=== PATIENT | female | born 1970 | race Caucasian/White ===

== ENCOUNTER 2022-02-16 14:51 | Inpatient (IN) ==
[2022-02-16 17:16] LABS: Basophils # (auto) 0.04 K/uL (0-0.2); Basophils % (auto) 0.4 %; Eosinophils # (auto) 0.05 K/uL (0-0.50); Eosinophils % (auto) 0.4 %; Hemoglobin 12.4 g/dl (12.0-16.0); Immature Granulocytes # (auto) 0.05 K/uL (0.00-0.02); Immature Granulocytes % (auto) 0.4 %; Lymphocytes # (auto) 0.66 K/uL (1.2-3.4); Lymphocytes % (auto) 5.9 %; Mean Corpuscular Hemoglobin 27.4 pg (25.0-34.0); Mean Corpuscular Hgb Conc 32.6 g/dL (32.0-36.0); Mean Corpuscular Volume 83.9 fL (80.0-100.0); Mean Platelet Volume 10.6 fL (9.4-12.3); Monocytes # (auto) 1.16 K/uL (0.24-0.82); Monocytes % (auto) 10.4 %; Neutrophils # (auto) 9.22 K/uL (1.4-6.5); Neutrophils % (auto) 82.5 %; Platelet Count 214 K/uL (130-400); RDW Coefficient of Variation 13.2 % (11.5-14.5); RDW Standard Deviation 40.8 fL (36.4-46.3); Red Blood Count 4.53 M/uL (3.93-5.22); White Blood Count 11.18 K/ul (4.8-10.8)
[2022-02-16 17:41] LABS: Albumin Level 4.2 gm/dl (3.4-5.0); BUN Creatinine Ratio 19.4 (10-20); Calcium 9.1 mg/dl (8.5-10.1); Creatinine Clr Calc Pharmacy 93.6 ml/min; Est GFR (African American) 119.3 ml/min; Est GFR (Non-African American) 102.9 ml/min; Globulin 4.1 gm/dl (2.5-4.0); Total Protein 8.3 gm/dl (6.0-8.3)
[2022-02-16 17:55] LABS: Potassium 3.5 mmol/L (3.5-5.1)
--- NOTE | 2022-02-16 18:19 | Emergency Department Note ---
Impression & Plan Septic arthritis of knee, right ED Provider Note Name: PEDRO PABLO HOLLIS Age: 52 Sex: F Arrives Via: Walk-In Informant: Patient ED Provider: Dallin Gusman MD Chief Complaint: Right knee pain Impression: As per impressions above Medical Decision Making: Pleasant 52-year-old female with a history of degenerative arthritis of the right knee and previous injections arrives with several days worsening right knee pain and swelling. Patient with severe discomfort on arrival tense swollen knee and severe pain on range of motion. She does still have good pulses and sensation distally. Knee is quite warm to touch as well. She is not febrile there is no erythema or streaking appreciated. Review of labs from 2 days earlier include a joint aspiration with white blood cell count of 39,000 and is now growing out some staph. Repeat blood work reveals just mildly elevated white blood cell count severely elevated ESR/CRP. I do suspect that this is a septic joint. She herself is not septic or bacteremic by examination. She was given empiric cefepime and then followed by vancomycin for coverage of the staph. I discussed the case with her orthopedic surgeon who feels she will likely need washout in the morning. Case was discussed with the hospitalist service for further management and the plan will be to be n.p.o. after midnight. Patient was kept comfortable with IV Dilaudid. Prior Medical Record and Triage/Nursing Notes reviewed by Me Additional history obtained from chart Differentials:Septic joint, gouty arthritis, effusion, hemarthrosis, Lyme, compartment syndrome, neurovascular compromise, DVT, multiple other considerations. Vital Signs: reviewed and remarkable for no significant abnormalities Interventions: Dilaudid 1 mg IV, normal saline bolus, cefepime 2 g IV, vancomycin IV Labs:Reviewed and remarkable for elevated ESR/CRP Imaging:Reviewed imaging from previous ER visit significant effusion and some osteoarthritis noted Consults:Dr. Ramos of the orthopedic service plans to take patient to the OR in morning, [facility] hospitalist Dr. Swann Plan: Disposition: Hospitalization Condition: Good History of Present Illness: 52-year-old female arrives for evaluation of right knee pain. Patient states she has been having increasing swelling and pain over the last few days. She was seen in the ER 2 days ago and had about 100 cc of fluid drained off the knee. She notes that initially was feeling better but then pain came back. Notes swelling significantly worse. She states the knee is getting increasingly painful. She is unable to bend the knee without severe pain. She is unable to bear weight due to the pain now. She was advised by pharmacy staff to return to ER given a positive fluid culture. She has not been on any antibiotics. She is been using some tramadol with minimal improvement in her pain. She has a history of osteoarthritis and has had been a drained and injected several times previously. She has no recent manipulation of the area nor recent injections. She did have a bug bite on the back of the knee about a year ago. 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 She denies any recent falls, trauma, injuries. She is not having any fevers, nausea, vomiting, chest pain, shortness of breath, foot pain or any other signs or symptoms. There was no radiation of pain. Patient rarely smokes. She has no significant past medical issues other than her osteoarthritis. ROS: See above HPI for pertinent positives & negatives. A total of 10 of all systems reviewed and were otherwise negative. Past Medical History: Osteoarthritis, Anxiety Past Surgical History:Hysterectomy Family History:non-contributory Social History:Previously worked as a nurse, occasional smoker, no drug use, no alcohol use Home Medications:no daily medications Allergies:cyclobenzaprine, morphine, penicillins, sertraline Vitals:Blood Pressure:121/70 , Pulse 96, RR 20, T 37.2C, O2 99% on RA Physical Exam: GENERAL: Patient is uncomfortable appearing and in moderate distress. (declines pain medication) EYES: No scleral icterus, unremarkable pupils. ENT: Mucous membranes moist, no nasal congestion. NECK: No masses appreciated, nomeningismus, trachea is midline. RESPIRATORY: No dyspnea. Clear to auscultation and equal bilaterally. No wheeze, no rhonchi. CARDIOVASCULAR: Regular rate and rhythm.No murmurs, rubs, gallops appreciated. GASTROINTESTINAL: Abdomen soft, non-tender, no peritonitis.Bowel sounds positive.No masses appreciated. BACK: No midline tenderness, no CVA tenderness EXTREMITIES: large swollen right knee with increased warmth severe pain on palpation, severe pain ROM. Distal n/v intact. Normal motion all extremities, no cyanosis, no edema. NEUROLOGIC: Alert and oriented, no acute motor or sensory deficits, no focal w eakness, cranial nerves grossly intact. SKIN: No rash, no jaundice, no diaphoresis. PSYCH: Appropriate GCS: 15 ED Course: Times/Reassessments: Patient vastly improved with some IV narcotics. Still having pain with any movement of knee but much more comfortable. Dallin Gusman MD Past Med/Surg History Medical History Anxiety Effusion of right knee Right knee DJD Right knee DJD Septic arthritis of knee, right Surgical History History of hysterectomy History of lumbosacral spine surgery Social History Smoking Status: Current some day smoker Second Hand Exposure: No; Do You Dip or Chew Tobacco: No; Tobacco Cessation Education Requested by Patient: No Hx Alcohol Use: No Hx Substance Use: No Preferred Language: Nepali Communication Ability: Effective Underwriting Assistant Required: No Beliefs That Will Affect Care: None Current Living Situation: Alone Other Information That Helps Us Care for You: No Feels Safe at Home: Yes Safety Concerns: Feels Safe At This Time Assistive Devices: Cane Allergies Allergies Allergy/AdvReac Type Severity Reaction Status Date / Time cyclobenzaprine Allergy Unknown DECREASES Verified 07/14/15 10:56 BP morphine Allergy Unknown RASH Verified 07/14/15 10:56 Penicillins Allergy Unknown Verified 07/14/15 10:56 sertraline Allergy Unknown BRUISING Unverified 07/14/15 10:56 Home Meds Home Medications Medication Instructions Recorded Confirmed Clonazepam (Klonopin) 0.5 mg PO TID ##0 12/22/10 POTASSIUM CHLORIDE (K-TABS) 30 meq PO TID ##0 11/01/14 Previous Rx's Medication Instructions Recorded oxycodone-acetaminophen 5 mg-325 1 - 2 tab PO Q6H PRN pain #15 tabs 02/14/22 mg tablet (Percocet) etodolac 200 mg capsule 200 mg PO BID PRN pain #20 caps 02/15/22 etodolac 200 mg capsule 200 mg PO BID PRN pain #20 caps 02/15/22 Results & Data (ED) Vital Signs Vital Signs - 24 hr 02/16/22 15:04 02/16/22 19:47 Temperature 37.2 C Temperature Source Temporal Artery Scan Pulse Rate 96 H Pulse Rate [Right Finger] 90 Respiratory Rate 20 20 Respiratory Effort / Characteristics Non-Labored Respiratory Depth Normal Blood Pressure 121/70 Blood Pressure [Right Arm] 127/76 Blood Pressure Mean 87 Blood Pressure Mean [Right Arm] 93 Pulse Oximetry 99 98 Oxygen Delivery Method Room Air Room Air Sepsis Recent Fever Within 48 Hours No Sepsis New/Unexplained Change in Mental Status N/A Sepsis Action Taken by Nursing No Action Required Laboratory Data Result diagrams: 02/17/22 05:25 02/17/22 05:25 Lab Results 02/16/22 02/16/22 02/16/22 Range/Units 17:00 17:00 17:00 WBC 11.18 H (4.8-10.8) K/ul RBC 4.53 (3.93-5.22) M/uL Hgb 12.4 (12.0-16.0) g/dl Hct 38.0 (34.1-44.9) % MCV 83.9 (80.0-100.0) fL MCH 27.4 (25.0-34.0) pg MCHC 32.6 (32.0-36.0) g/dL RDW Std Deviation 40.8 (36.4-46.3) fL RDW Coeff of Handy 13.2 (11.5-14.5) % Plt Count 214 (130-400) K/uL MPV 10.6 (9.4-12.3) fL Immature Gran % (Auto) 0.4 % Neut % (Auto) 82.5 % Lymph % (Auto) 5.9 % Surry % (Auto) 10.4 % Eos % (Auto) 0.4 % Baso % (Auto) 0.4 % Neut # (Auto) 9.22 H (1.4-6.5) K/uL Lymph # (Auto) 0.66 L (1.2-3.4) K/uL Surry # (Auto) 1.16 H (0.24-0.82) K/uL Eos # (Auto) 0.05 (0-0.50) K/uL Baso # (Auto) 0.04 (0-0.2) K/uL Immature Gran # (Auto) 0.05 H (0.00-0.02) K/uL ESR 100 H (0-30) mm/hr Sodium 131 L (136-145) mmol/L Potassium 3.5 (3.5-5.1) mmol/L Chloride 98 (98-107) mmol/L Carbon Dioxide 24 (21-32) mmol/L Anion Gap 9 (3-11) BUN 12 (6-23) mg/dl Creatinine 0.62 (0.6-1.2) mg/dl Est Cr Clr Drug Dosing 93.6 ml/min Est GFR ( Amer) 119.3 ml/min Est GFR (Non-Af Amer) 102.9 ml/min BUN/Creatinine Ratio 19.4 (10-20) Glucose 120 H (70-99(Fasting)) mg/dl Calcium 9.1 (8.5-10.1) mg/dl Total Bilirubin 1.0 (0.2-1.0) mg/dl AST 16 (13-39) U/L ALT 12 (7-52) U/L Alkaline Phosphatase 87 (34-104) U/L C-Reactive Protein (0-0.5) mg/dl Total Protein 8.3 (6.0-8.3) gm/dl Albumin 4.2 (3.4-5.0) gm/dl Globulin 4.1 H (2.5-4.0) gm/dl Albumin/Globulin Ratio 1.0 (0.9-2) SARS-CoV-2, RNA, NAAT (NEGATIVE) 02/16/22 02/16/22 Range/Units 17:00 18:59 WBC (4.8-10.8) K/ul RBC (3.93-5.22) M/uL Hgb (12.0-16.0) g/dl Hct (34.1-44.9) % MCV (80.0-100.0) fL MCH (25.0-34.0) pg MCHC (32.0-36.0) g/dL RDW Std Deviation (36.4-46.3) fL RDW Coeff of Handy (11.5-14.5) % Plt Count (130-400) K/uL MPV (9.4-12.3) fL Immature Gran % (Auto) % Neut % (Auto) % Lymph % (Auto) % Surry % (Auto) % Eos % (Auto) % Baso % (Auto) % Neut # (Auto) (1.4-6.5) K/uL Lymph # (Auto) (1.2-3.4) K/uL Surry # (Auto) (0.24-0.82) K/uL Eos # (Auto) (0-0.50) K/uL Baso # (Auto) (0-0.2) K/uL Immature Gran # (Auto) (0.00-0.02) K/uL ESR (0-30) mm/hr Sodium (136-145) mmol/L Potassium (3.5-5.1) mmol/L Chloride (98-107) mmol/L Carbon Dioxide (21-32) mmol/L Anion Gap (3-11) BUN (6-23) mg/dl Creatinine (0.6-1.2) mg/dl Est Cr Clr Drug Dosing ml/min Est GFR ( Amer) ml/min Est GFR (Non-Af Amer) ml/min BUN/Creatinine Ratio (10-20) Glucose (70-99(Fasting)) mg/dl Calcium (8.5-10.1) mg/dl Total Bilirubin (0.2-1.0) mg/dl AST (13-39) U/L ALT (7-52) U/L Alkaline Phosphatase (34-104) U/L C-Reactive Protein 39.16 H (0-0.5) mg/dl Total Protein (6.0-8.3) gm/dl Albumin (3.4-5.0) gm/dl Globulin (2.5-4.0) gm/dl Albumin/Globulin Ratio (0.9-2) SARS-CoV-2, RNA, NAAT NEGATIVE (NEGATIVE) Administered Medications Acetaminophen (Acetaminophen 325 Mg Tab) 650 mg PO Q4H PRN PRN Reason: pain/fever Stop: 03/18/22 21:58 Last Admin: 02/17/22 07:55 Dose: 650 mg Documented By: [id number] Hydromorphone HCl (Hydromorphone Inj 0.5 Mg/0.5 Ml Syr) 0.5 mg IV Q3H PRN PRN Reason: Pain Stop: 03/02/22 21:58 Last Admin: 02/17/22 07:19 Dose: 0.5 mg Documented By: Admin: 02/17/22 03:36 Dose: 0.5 mg Documented By: Admin: 02/16/22 22:42 Dose: 0.5 mg Documented By: RES Sodium Chloride (Nss 1000ml) 1,000 mls @ 125 mls/hr IV .Q8H OMAR Stop: 03/18/22 21:58 Last Admin: 02/17/22 05:53 Dose: 125 mls/hr Documented By: Infusion: 02/17/22 05:53 Dose: 125 mls/hr Documented By: Admin: 02/16/22 21:59 Dose: 125 mls/hr Documented By: ROBERTO Vancomycin HCl 1,000 mg/ (Sodium Chloride) 270 mls @ 200 mls/hr IV Q12H OMAR; Protocol Stop: 03/31/22 02:59 Last Infusion: 02/17/22 04:58 Dose: 0 mls/hr Documented By: Admin: 02/17/22 03:36 Dose: 200 mls/hr Documented By: ROBERTO Ertapenem 1,000 mg/ Syringe 10 mls @ 2 mls/min IV Q24H OMAR Stop: 03/31/22 05:59 Last Admin: 02/17/22 05:53 Dose: 2 mls/min Documented By: ROBERTO Discontinued Medications Epinephrine HCl (Epinephrine Inj 1 Mg/Ml Amp) Confirm Administered Dose 1 mg .ROUTE .STK-MED ONE Stop: 02/17/22 10:17 Last Admin: 02/17/22 11:12 Dose: Not Given Documented By: SLM Hydromorphone HCl (Hydromorphone Inj 1 Mg/Ml Syringe) 1 mg IV NOW STA Stop: 02/16/22 19:04 Last Admin: 02/16/22 19:08 Dose: 1 mg Documented By: LUDY Cefepime HCl (Maxipime) 2,000 mg in 20 mls @ 5 mls/min IV NOW STA; Protocol Stop: 02/16/22 18:58 Last Admin: 02/16/22 19:06 Dose: 5 mls/min Documented By: LUDY Vancomycin HCl 1,250 mg/ (Sodium Chloride) 525 mls @ 200 mls/hr IV NOW ONE Stop: 02/16/22 21:32 Last Infusion: 02/16/22 22:40 Dose: 0 mls/hr Documented By: Admin: 02/16/22 19:58 Dose: 200 mls/hr Documented By: LUDY Sodium Chloride (Nss 1000ml) 1,000 mls @ 999 mls/hr IV .Q1H1M ONE Stop: 02/16/22 20:03 Last Infusion: 02/16/22 20:09 Dose: 0 mls/hr Documented By: Admin: 02/16/22 19:07 Dose: 999 mls/hr Documented By: LUDY Ibuprofen (Ibuprofen 200 Mg Tab) 200 mg PO NOW STA Stop: 02/17/22 08:32 Last Admin: 02/17/22 08:43 Dose: 200 mg Documented By: [id number] Ketorolac Tromethamine (Ketorolac 30 Mg/Ml Vial) Confirm Administered Dose 30 mg .ROUTE .STK-MED ONE Stop: 02/17/22 10:16 Last Admin: 02/17/22 11:11 Dose: Not Given Documented By: EMERSON Ondansetron HCl (Ondansetron Inj 2 Mg/Ml 2 Ml Vial) 4 mg IV NOW STA Stop: 02/16/22 19:04 Last Admin: 02/16/22 19:08 Dose: 4 mg Documented By: LUDY Discharge Plan Visit Data Chief Complaint: Leg Injury/Pain Stated Complaint: BACTERIA ON KNEE ED Provider: Dallin Gusman Discharge Problem: Septic arthritis of knee, right Patient Disposition: Admitted As Inpatient Discharge Instructions Interventions: ED Discharge Assessment Last Done: 02/16/22 21:12
[2022-02-16] MEDS ORDERED: VANCOMYCIN CONSULT ACTIVE PRN ×2 (18:55→21:59)
[2022-02-16] MEDS ORDERED: VANCOMYCIN HCL 1,250 MG in SODIUM CHLORIDE 0.9% 500 ML IV ONE (18:55)
[2022-02-16] MEDS ORDERED: CEFEPIME 2,000 MG/20 ML VIAL IV STA (18:55)
[2022-02-16] MEDS ORDERED: ONDANSETRON INJ 2 MG/ML 2 ML VIAL IV STA (19:03)
[2022-02-16] MEDS ORDERED: HYDROmorphone INJ 1 MG/ML SYRINGE IV STA (19:03)
[2022-02-16] MEDS ORDERED: SODIUM CHLORIDE 0.9% 1000ML 1,000 ML IV ONE (19:03)
[2022-02-16] MEDS: SODIUM CHLORIDE 0.9% 1000ML 1,000 ML IV SCH (21:59)
[2022-02-16] MEDS ORDERED: ACETAMINOPHEN 325 MG TAB PO PRN (21:59)
[2022-02-16] MEDS ORDERED: POLYETHYLENE (MIRALAX) 17 GM PACK PO PRN (21:59)
[2022-02-16] MEDS ORDERED: ONDANSETRON INJ 2 MG/ML 2 ML VIAL IV PRN (21:59)
--- NOTE | 2022-02-16 22:16 | History and Physical Report ---
DATE OF ADMISSION: 02/16/2022. CHIEF COMPLAINT: Right knee pain. HISTORY OF PRESENT ILLNESS: This is a 52-year-old female with past medical history significant for osteoarthritis, no other significant medical problems, not taking any medication currently, presents with right knee pain. The patient says she has arthritis in the right knee and her knee has been drained a few times in the past and last time it was drained was a few days back in the ER. She was having swelling and pain since last Saturday and a couple of days ago, she was drained in the ER and cultures growing Staph species, so was advised to come to the hospital. She is having a lot of pain in the knee and also swelling down the knee, right leg. Not able to put any weight on that leg. Denies any fevers. No other problems. Currently resting comfortably and hemodynamically stable. Denies any headache, no dizziness, no blurred visions, no earache, no runny nose, no sore throat. No cough. Appetite is okay. No difficulty swallowing. No chest pain or shortness of breath, no nausea, no abdominal pain. Normal bowel and bladder movements. No hematuria or blood in the stools or black stools. ALLERGIES: CYCLOBENZAPRINE, MORPHINE, PENICILLIN, SERTRALINE. PAST MEDICAL HISTORY: As mentioned above. PAST SURGICAL HISTORY: Back surgery. MEDICATIONS: None. FAMILY HISTORY: Father had heart problems; she says mother had congenital heart problems. SOCIAL HISTORY: She used to smoke in the past once in a while. Denies alcohol or illicit drug use. REVIEW OF SYSTEMS: As per HPI. Rest of the review of systems is negative. PHYSICAL EXAMINATION: GENERAL: The patient is of moderate build, not in acute distress. VITAL SIGNS: Temperature 37.2, pulse 90, respiratory rate 20, blood pressure 127/76, and oxygen 98% on room air. HEENT: Pupils equal, round and reactive to light. Oral mucosa moist. NECK: No JVD, no neck masses. CARDIOVASCULAR: S1 and S2 heard. Regular rate and rhythm. No murmur, no gallop. RESPIRATORY SYSTEM: Normal AP diameter. No accessory muscle use. No wheezing, no crackles. ABDOMEN: Soft, bowel sounds present, nontender, no distention. CENTRAL NERVOUS SYSTEM: Cranial nerves II through XII grossly intact, nonfocal. EXTREMITIES: Right knee is swollen and tender and swelling below the right knee, no erythema is seen, painful to palpation, painful on movements. LABORATORY DATA: WBC 11.1, hemoglobin 12.4, hematocrit 38, platelets 214. ESR 100. Sodium 131, potassium 3.5, chloride 98, bicarbonate 24, BUN 12, creatinine 0.6, serum glucose 120, calcium 9.1, total bilirubin 1, AST 16, ALT 12, alkaline phosphatase 87. C-reactive protein 39. SARS-CoV-2 rapid test negative. ASSESSMENT AND PLAN: This is a 52-year-old male who presents with right knee septic arthritis. 1. Right knee septic arthritis. Emergency Room started her on IV vancomycin, we will continue with IV vancomycin and Invanz. N.p.o., IV fluids, IV antiemetics, IV pain medications. We will get preoperative EKG and chest x-ray. If that is okay, the patient should be at acceptable risk to proceed with the procedure. Consult orthopedics. 2. Deep venous thrombosis prophylaxis. Holding anticoagulation secondary to possible procedure tomorrow. Further anticoagulation as per orthopedics. DISPOSITION: Admit to medical floor. Expect to discharge home and follow with family doctor. Job ID: [id number] [facility]
--- NOTE | 2022-02-16 22:36 | XRay Report ---
XR chest 1V portable HISTORY: 52 years-old Female pre op preoperative exam. COMPARISON: Chest CT 05/14/2011 TECHNIQUE: Portable AP view of the chest FINDINGS: Cardiomediastinal and hilar silhouettes are within normal limits. No pneumothorax, pleural effusion, airspace consolidation or overt bulge appear grossly intact. Degenerative changes of the shoulders an d spine. IMPRESSION: No acute process. ACT 112: Negative or not required by law. The above report was generated using voice recognition software. It may contain grammatical, syntax o r spelling errors. Electronically signed by: Jatin Gardner M.D. 02/16/2022 10:34 PM
[2022-02-16] MEDS: HYDROmorphone INJ 0.5 MG/0.5 ML SYR IV PRN (22:42)
--- NOTE | 2022-02-16 23:41 | Ultrasound Report ---
US venous doppler LE RT HISTORY: 52 years-old Female rigt lower ext swelling and pain. DVT? Acute pain and swelling of the r ight lower leg COMPARISON: None TECHNIQUE: Multiple real-time sonographic images of the right lower extremity deep venous structures were obtained assessing grayscale appearance, color and spectral flow. FINDINGS: Normal flow, compressibility, phasicity and augmentation. Limited exam secondary to patient intoleran ce to the exam. IMPRESSION: No sonographic evidence of deep venous thrombosis. ACT 112: Negative or not required by law. The above report was generated using voice recognition software. It may contain grammatical, syntax o r spelling errors. Electronically signed by: Jatin Gardner M.D. 02/16/2022 11:39 PM
[2022-02-17] MEDS: HYDROmorphone INJ 0.5 MG/0.5 ML SYR IV PRN ×2 (03:36→07:19)
[2022-02-17] MEDS: VANCOMYCIN HCL 1,000 MG in SODIUM CHLORIDE 0.9% 250 ML IV SCH ×2 (03:36→16:09)
[2022-02-17 05:52] LABS: Basophils # (auto) 0.03 K/uL (0-0.2); Basophils % (auto) 0.3 %; Eosinophils # (auto) 0.03 K/uL (0-0.50); Eosinophils % (auto) 0.3 %; Hematocrit (blood only) 34.3 % (34.1-44.9); Hemoglobin 11.2 g/dl (12.0-16.0); Immature Granulocytes # (auto) 0.03 K/uL (0.00-0.02); Immature Granulocytes % (auto) 0.3 %; Lymphocytes # (auto) 0.66 K/uL (1.2-3.4); Lymphocytes % (auto) 6.3 %; Mean Corpuscular Hemoglobin 27.5 pg (25.0-34.0); Mean Corpuscular Hgb Conc 32.7 g/dL (32.0-36.0); Mean Corpuscular Volume 84.1 fL (80.0-100.0); Mean Platelet Volume 10.8 fL (9.4-12.3); Monocytes # (auto) 1.03 K/uL (0.24-0.82); Monocytes % (auto) 9.8 %; Neutrophils # (auto) 8.69 K/uL (1.4-6.5); Platelet Count 193 K/uL (130-400); RDW Coefficient of Variation 13.3 % (11.5-14.5); RDW Standard Deviation 41.2 fL (36.4-46.3); Red Blood Count 4.08 M/uL (3.93-5.22); White Blood Count 10.47 K/ul (4.8-10.8)
[2022-02-17] MEDS: ERTAPENEM SODIUM 1,000 MG in SYRINGE 0 ML IV SCH (05:53)
[2022-02-17] MEDS: SODIUM CHLORIDE 0.9% 1000ML 1,000 ML IV SCH ×2 (05:53→13:14)
[2022-02-17 06:24] LABS: BUN Creatinine Ratio 14.8 (10-20); Calcium 8.7 mg/dl (8.5-10.1); Est GFR (African American) 124.9 ml/min; Est GFR (Non-African American) 107.7 ml/min; Magnesium 1.6 mg/dl (1.7-2.4); Potassium 3.6 mmol/L (3.5-5.1)
--- NOTE | 2022-02-17 07:29 | Orthopedic Consultation ---
Date of Service February 17, 2022 Assessment & Plan (1) Septic arthritis of knee, right: Patient has been admitted to the hospital. She is warranted and indicated for surgical irrigation debridement of left septic knee. The's was discussed with the patient and she strongly took desiring to proceed. We will plan on doing this later today. The risk meant the procedure explained in depth. Patient understands and desires to proceed. Informed consent was obtained. (2) Right knee DJD: History of Present Illness Reason for Consultation: . Right knee pain and swelling. Requesting Physician: . Attending Physician: Allyson Sandoval MD . Patient is a 52-year-old female with trace presents for treatment of swollen painful right knee. As she is got known history of arthritis in the knee has had multiple aspirations and injections in the past. Nothing recent. On Saturday evening when she got home from work she started pain discomfort and swelling her knee. Describes gotten worse over the past several days. He has been to the ER on several occasions for management. She had her knee aspirated initially. She was given some NSAIDs which helped some. The aspirations are growing out staph. Patient was roup admitted last evening and now indicated for surgical management. Allergies Allergy/AdvReac Type Severity Reaction Status Date / Time cyclobenzaprine Allergy Unknown DECREASES Verified 07/14/15 10:56 BP morphine Allergy Unknown RASH Verified 07/14/15 10:56 Penicillins Allergy Unknown Verified 07/14/15 10:56 sertraline Allergy Unknown BRUISING Unverified 07/14/15 10:56 Home Medications Medication Instructions Recorded Confirmed Type Clonazepam (Klonopin) 0.5 mg PO TID ##0 12/22/10 History POTASSIUM CHLORIDE (K-TABS) 30 meq PO TID ##0 11/01/14 History oxycodone-acetaminophen 5 mg-325 1 - 2 tab PO Q6H PRN pain #15 tabs 02/14/22 Rx mg tablet (Percocet) etodolac 200 mg capsule 200 mg PO BID PRN pain #20 caps 02/15/22 Rx etodolac 200 mg capsule 200 mg PO BID PRN pain #20 caps 02/15/22 Rx Past Med/Surg History Medical History (Updated 02/17/22 @ 07:29 by Imtiaz Ramos MD) Anxiety Effusion of right knee Right knee DJD Right knee DJD Septic arthritis of knee, right Surgical History History of hysterectomy History of lumbosacral spine surgery Social History Smoking Status: Current some day smoker Second Hand Exposure: No; Do You Dip or Chew Tobacco: No; Tobacco Cessation Education Requested by Patient: No Hx Alcohol Use: No Hx Substance Use: No Preferred Language: [place] Communication Ability: Effective Stave Block Roller Required: No Beliefs That Will Affect Care: None Current Living Situation: Alone Other Information That Helps Us Care for You: No Feels Safe at Home: Yes Safety Concerns: Feels Safe At This Time Assistive Devices: Denture - Upper and Denture - Lower Review of Systems All systems reviewed & are unremarkable except as noted in HPI & below. Physical Exam . Physical examination reveals a pleasant middle-age female who looks in good health. She really looks quite uncomfortable. Examination of the right knee re veals a very tense and swollen knee. Is very tender to palpation. It is warm. No redness. She really cannot bend at all. Exquisitely tender to touch. She can dorsiflex and plantarflex her foot appropriately. No particular pain with hip motion. She is neurologically intact. Results & Data Results & Data Laboratory Results . Laboratory results reveal a white count of 11.18. Hemoglobin hematocrit are normal. Sed rate is 120. CRP 39.16. Knee aspirate reveals a 39,000 white cells with 93% polys. And negative crystals. Cultures are growing out staph. Diagnostic Findings . X-rays of the right knee were reviewed. Shows moderate to advanced right knee arthritis. She got a very large knee joint effusion. PG Care Time/CCT Total # of Minutes Spent Total Time Spent with Patient: Total time spent is greater than 50% in coordination of care (as documented) at patient's floor/unit and/or counseling patient: Coding Level of Care Code 54479 Inpt Consult Level 5 Diagnoses Septic arthritis of knee, right M00.9 Right knee DJD M17.11
[2022-02-17] MEDS ORDERED: IBUPROFEN 200 MG TAB PO STA (08:31)
--- NOTE | 2022-02-17 09:12 | Anesthesiology Consultation ---
Date of Service February 17, 2022 Assessment & Plan Chart Review Chart Review: Acceptable Risk for Surgery and Patient NOT seen in Pre Admission Testing Consults Requested none ASA ASA2 Proposed Anesthesia Anesthesia Type: General History Surgery Operation Date: 02/17/22 09:00 Proposed Procedures p Arthroscopy Incision and Debridement right knee - Imtiaz Ramos MD Height/Weight Height: 5 ft 7 in Weight: 55.2 kg Allergies Allergy/AdvReac Type Severity Reaction Status Date / Time cyclobenzaprine Allergy Unknown DECREASES Verified 07/14/15 10:56 BP morphine Allergy Unknown RASH Verified 07/14/15 10:56 Penicillins Allergy Unknown Verified 07/14/15 10:56 sertraline Allergy Unknown BRUISING Unverified 07/14/15 10:56 Medications Home Medications Medication Instructions Recorded Confirmed Last Taken Clonazepam (Klonopin) 0.5 mg PO TID ##0 12/22/10 Unknown POTASSIUM CHLORIDE (K-TABS) 30 meq PO TID ##0 11/01/14 Unknown oxycodone-acetaminophen 5 mg-325 1 - 2 tab PO Q6H PRN pain #15 tabs 02/14/22 1 Day Ago mg tablet (Percocet) ~02/16/22 etodolac 200 mg capsule 200 mg PO BID PRN pain #20 caps 02/15/22 Unknown etodolac 200 mg capsule 200 mg PO BID PRN pain #20 caps 02/15/22 Unknown Active Medications Generic Name Dose Route Start Last Admin Trade Name Freq PRN Reason Stop Dose Admin Acetaminophen 650 mg 02/16/22 21:59 02/17/22 07:55 Acetaminophen 325 Mg Tab PO 03/18/22 21:58 650 mg Q4H PRN Administration pain/fever Hydromorphone HCl 0.5 mg 02/16/22 21:59 02/17/22 07:19 Hydromorphone Inj 0.5 Mg/0.5 Ml Syr IV 03/02/22 21:58 0.5 mg Q3H PRN Administration Pain Sodium Chloride 1,000 mls @ 125 mls/hr 02/16/22 21:59 02/17/22 05:53 Nss 1000ml IV 03/18/22 21:58 125 mls/hr .Q8H OMAR Administration Vancomycin HCl 1,000 mg/ 270 mls @ 200 mls/hr 02/17/22 03:00 02/17/22 04:58 Sodium Chloride IV 03/31/22 02:59 Infused Q12H OMAR Infusion Protocol Ertapenem 1,000 mg/ Syringe 10 mls @ 2 mls/min 02/17/22 06:00 02/17/22 05:53 IV 03/31/22 05:59 2 mls/min Q24H OMAR Administration NPO Date Last Intake of Fluids: 02/16/22 Time Last Intake of Fluids: 23:45 Date Last Intake of Solids: 02/16/22 Time Last Intake of Solids: 21:00 Past Medical History Medical History Anxiety Effusion of right knee Right knee DJD Right knee DJD Septic arthritis of knee, right Exercise / Class Metabolic Activity II 4-5 Yardwork/Stairs/Walk up hill Past Surgical History Surgical History History of hysterectomy History of lumbosacral spine surgery Past Anesthesia History No Hx of Anesthesia Complications and No Family Hx of Anesthesia Complications History of PONV No Hx of PONV and No Hx of Motion Sickness Social History Smoking Status: Current some day smoker tobacco type: cigarettes Do You Dip or Chew Tobacco: No Hx Alcohol Use: No Hx Substance Use: No Physical Exam Vital Signs Last Vital Signs Temp 37.7 C H 02/17/22 09:04 Pulse 107 H 02/17/22 07:50 Resp 16 02/17/22 07:50 BP 115/68 02/17/22 07:50 Pulse Ox 98 02/17/22 07:50 O2 Del Method 02/17/22 07:50 Testing Laboratory Results 02/17/22 05:25 02/17/22 05:25
[2022-02-17] MEDS ORDERED: fentaNYL citrate 100 MCG/2 ML VIAL IV PRN (09:34)
[2022-02-17] MEDS ORDERED: LABETALOL HCL IV 5 MG/ML 20ML IV PRN (09:34)
[2022-02-17] MEDS ORDERED: HYDROmorphone INJ 1 MG/ML SYRINGE IV PRN (09:34)
[2022-02-17] MEDS ORDERED: NALOXONE HCL 0.4 MG/1 ML VIAL/CARP IV PRN ×2 (09:34→12:32)
[2022-02-17] MEDS ORDERED: PROMETHAZINE HCL 12.5 MG in SODIUM CHLORIDE 0.9% 50 ML IV PRN (09:34)
[2022-02-17] MEDS ORDERED: FLUMAZENIL 0.1 MG/1 ML 10 ML VIAL IV PRN (09:34)
[2022-02-17] MEDS ORDERED: ATROPINE SULFATE 0.1 MG/ML 10ML SYR IV PRN (09:34)
[2022-02-17] MEDS ORDERED: ePHEDrine sulfate 50 MG/ML AMP IV PRN (09:34)
[2022-02-17] MEDS ORDERED: ONDANSETRON INJ 2 MG/ML 2 ML VIAL IV PRN ×2 (09:34→12:32)
[2022-02-17] MEDS ORDERED: MIDAZOLAM HCL 1 MG/ML 2ML VIAL ONE (09:35)
[2022-02-17] MEDS ORDERED: DEXAMETHASONE SOD INJ 4 MG/ML VIAL ONE (09:35)
[2022-02-17] MEDS ORDERED: PROPOFOL IV EMULSION 10 MG/ML 20 ML VIAL IV ONE (09:35)
[2022-02-17] MEDS ORDERED: fentaNYL citrate 100 MCG/2 ML VIAL ONE ×3 (09:35→10:59)
[2022-02-17] MEDS ORDERED: ONDANSETRON INJ 2 MG/ML 2 ML VIAL ONE (09:35)
[2022-02-17] MEDS ORDERED: LIDOCAINE 2% 2 ML VIAL/AMP(20MG/ML) INFIL ONE (09:35)
[2022-02-17] MEDS ORDERED: KETOROLAC 30 MG/ML VIAL ONE ×2 (10:15→11:54)
[2022-02-17] MEDS ORDERED: EPINEPHrine INJ 1 MG/ML AMP ONE (10:16)
--- NOTE | 2022-02-17 10:39 | Pharmacy Report ---
Pharmacy PK ABX Note - Date of Service February 17, 2022 - Assessment and Plan Assessment 52 year old F receiving vancomycin/ertapenem for treatment of septic knee joint. Pertinent microbiologic data includes: MSSA from synovial fluid 02/14- preliminary culture. Blood cultures pending. Leukocytosis has resolved this morning. Procal was elevated 0.58, tmax 39.3 this AM. Day # =1 of antimicrobial therapy. Plan Vancomycin * Loading dose: 1250 mg IV x 1 * Maintenance dose: 1000 mg IV every 12 hours * Regimen is predicted to achieve target AUC/KATIE of 400-600 mg/L.hr * Random to be ordered if continued Pharmacy will continue to follow and will adjust dose/frequency as necessary. Thank you. Pharmacy has transitioned to AUC monitoring for vancomycin. AUC/KATIE is the preferred PK/PD target and is associated with decreased risk of nephrotoxicity compared to traditional trough targets.
--- NOTE | 2022-02-17 10:48 | Communication Note ---
Date of Service: February 17, 2022 02/17/2022 TREVOR-MERCEDEZ@ 94;RAD;NS ST abnl
--- NOTE | 2022-02-17 12:20 | Anesthesiology Progress Note ---
Date of Service February 17, 2022 Anesthesia Post Procedure Vital Signs Vital Signs: Temp Pulse Pulse Resp BP BP Pulse Ox 02/17/22 12:19 36.7 C 84 18 126/72 100 02/17/22 12:09 36.9 C 88 17 137/75 100 02/17/22 11:57 36.8 C 87 17 132/81 100 02/17/22 11:47 36.8 C 88 17 117/69 100 02/17/22 09:04 37.7 C H 02/17/22 08:27 38 C H 02/17/22 07:50 39.3 C H 107 H 16 115/68 98 02/16/22 21:40 02/16/22 21:40 02/16/22 21:40 37.3 C 96 H 18 120/77 100 02/16/22 22:40 37.3 C 96 H 18 120/77 100 02/16/22 19:47 90 20 127/76 98 02/16/22 15:04 37.2 C 96 H 20 121/70 99 O2 Del Method O2 Flow Rate 02/17/22 12:19 Room Air 02/17/22 12:09 Non-rebreather 4 02/17/22 11:57 Non-rebreather 4 02/17/22 11:47 Non-rebreather 4 02/17/22 09:04 02/17/22 08:27 02/17/22 07:50 Room Air 02/16/22 21:40 Room Air 02/16/22 21:40 Room Air 02/16/22 21:40 Room Air 02/16/22 22:40 Room Air 02/16/22 19:47 Room Air 02/16/22 15:04 Room Air Pain Intensity Right Knee: Pain Intensity: 0 Transfer of Care Handoff Completed per policy Notes Mental Status: alert / awake / arousable Patient Amnestic to Procedure: Yes Nausea / Vomiting: adequately controlled Pain: adequately controlled Airway Patency, RR, SpO2: stable & adequate BP & HR: stable & adequate Hydration State: stable & adequate Anesthetic Complications: no major complications apparent
[2022-02-17] MEDS ORDERED: VANCOMYCIN CONSULT ACTIVE PRN (12:32)
[2022-02-17] MEDS ORDERED: bisacodyL 10 MG SUPP PR PRN (12:32)
[2022-02-17] MEDS ORDERED: MAGNESIUM HYDROXIDE SUSP 30 ML UDC PO PRN (12:32)
[2022-02-17] MEDS ORDERED: diphenhydrAMINE Capsule 25 MG CAP PO PRN (12:32)
[2022-02-17] MEDS ORDERED: ALUMINUM/MAGNESIUM SUSP 30 ML UDC PO PRN (12:32)
[2022-02-17] MEDS ORDERED: METOCLOPRAMIDE HCL INJ 5 MG/ML 2 ML VIAL IV PRN (12:32)
--- NOTE | 2022-02-17 12:42 | Operative Report ---
PG Post Operative Report Pre & Post Diagnosis Operation Date: 02/17/22 09:00 Pre-Op Diagnosis: Septic arthritis of knee, right Post-Op Diagnosis: Septic arthritis of knee, right I identified the patient and participated in the time-out.: Yes Procedure Operation Date: 02/17/22 09:00 Actual Procedures p Right Knee Arthroscopy Incision and Debridement (Right) - Imtiaz Ramos MD Surgeon Imtiaz Ramos MD Building Maintenance Supervisor Delio Lancaster PA-C Estimated Blood Loss 10 Findings Consistent with Post-Op Diagnosis Operative findings revealed large blood-tinged effusion. She had extensive grade 4 [id number] disease in all 3 compartments most severe in the medial side with significant eburnation of the medial femoral condyle and medial tibial plateau. She had degenerative tearing of both menisci. Large knee joint effusion. Specimens Joint fluid sent for stat gram stain aerobic, and anaerobic culture. Drains WILFREDO drain right knee Anesthesia Type General Complications none Disposition Accompanied Patient To Recovery: No Indications Patient is a 52-year-old female with a known advanced knee arthritis. She has had conservative treatment over the years. On Saturday evening after work she started about pain and swelling insidiously in the right knee. Is gradually progressed. She been to emergency room on multiple occasions. She had her knee aspirated and the cultures are growing out staph. The patient indicated for surgical treatment. Description of Procedure Patient was taken the operating, identified, and placed in the operating table supine position but all contact areas were properly padded. IV antibiotics tried by anesthesia team. A general anesthetic was implemented. A right thigh turn was then placed. The right lower extremity was then scrubbed with Hibiclens, prepped with ChloraPrep and draped in usual sterile fashion. The right leg was elevated exsanguinated with use of an Esmarch in terms playset 300 mmHg. A superolateral portal was established. I did take the fluid out of the knee and then sent this for stat gram stain and aerobic and anaerobic culture. Routine a knee arthroscopy was then performed subtemporal anterior medial and anterior lateral portals. I did an extensive synovectomy of the front of the knee cut, suprapatellar pouch, medial and lateral gutters. We did debride both medial lateral compartments with use of a shaver. I spent quite a bit of time doing this visit in each area multiple times. We used a total of 12 L of fluid. Once this was complete the arthroscopic instruments placed throughout the knee joint to get all remaining debris. The arthroscopic instruments were then removed from the joint. A drain was then placed through the superior lateral portals through the trocar. It was sewn into place. The anterior medial and anterolateral portals were then sutured. Sterile dressing was Xeroform, 4 x 4's, sterile cast padding, Jun bandage were applied. The tourniquet was let down for turn time 36 minutes. The patient then brought out of general incision transferred to the recovery room in stable condition. The patient tolerated procedure well and there were no complications. Delio Darden, my physician cement tester assistant, was present for the entire procedure. His assistance was required for proper patient positioning, prep prepping and draping, manipulating the knee during knee arthroscopy, closure of the wound, placement of sterile bandage. I attest to the content of the Intraoperative Record and any orders documented therein. Any exceptions are noted below.
--- NOTE | 2022-02-17 13:01 | Electrocardiogram Report ---
Test Reason : Blood Pressure : / mmHG Vent. Rate : 094 BPM Atrial Rate : 094 BPM P-R Int : 124 ms QRS Dur : 088 ms QT Int : 328 ms P-R-T Axes : 089 092 072 degrees QTc Int : 410 ms Normal sinus rhythm Rightward axis Nonspecific ST abnormality Abnormal ECG When compared with ECG of 17-JAN-2012 21:57, ST now depressed in Inferior leads Nonspecific T wave abnormality no longer evident in Inferior leads T wave amplitude has decreased in Lateral leads Confirmed by Bro Diana ([id number]) on 02/17/2022 1:00:45 PM Referred By: REFERRED SELF Confirmed By:Jerrod Diana
[2022-02-17] MEDS: ACETAMINOPHEN 500 MG TAB PO SCH ×2 (13:14→21:35)
[2022-02-17] MEDS: KETOROLAC 30 MG/ML VIAL IV SCH ×2 (13:14→17:35)
[2022-02-17] MEDS ORDERED: MAGNESIUM SULFATE / D5W 1 GM/100 ML BAG IV ONE (16:00)
--- NOTE | 2022-02-17 16:00 | Hospitalist Progress Note ---
Date of Service February 17, 2022 Assessment & Plan (1) Septic arthritis of knee, right: Plan: Patient has right knee septic arthritis Culture of aspirate on 02/14 growing MSSA Had fever this AM at 39.3 Did meet SIRS criteria for sepsis with fever and tachycardia this AM No leukocytosis. Lactate is normal Procal was 0.58 S/P incision and debridement by surgeon today Will continue vanc and ertapenem ordered on admission Follow up gram stain and culture sent from OR Follow up blood culture Consider deescalating to Ancef tomorrow based on synovial culture from 02/14 Holloway control Will need PT/OT eventually. Replete hypomagnesemia and monitor ASA 81mg BID ordered by surgery Admission and Anticipated Discharge Date Admission Date: February 16, 2022 Subjective Patient seen and examined ROS is limited as patient is drowsy and easily falls asleep in between conversation Was seen after return from OR Physical Exam Constitutional: + well hydrated; no acute distress Eyes: PERRL, conjunctivae normal, anicteric sclerae ENMT: external ear and nose normal, oropharynx normal Respiratory: normal respiratory effort, lungs clear to auscultation Cardiovascular: Rate/Rhythm: regular rate and regular rhythm S1 S2 Gastrointestinal (Abdomen): normal bowel sounds, soft, nontender, no hepatosplenomegaly Musculoskeletal: Right Knee bandaged Neurologic: Drowsy but arousable Results & Data Results & Data ([facility]) Vital Signs (Past 12 Hours) Vital Signs Temp Pulse Resp BP Pulse Ox O2 Del Method O2 Flow Rate 02/17/22 15:36 36.7 C 81 16 110/80 99 Room Air 02/17/22 14:35 36.3 C L 81 16 103/67 98 Room Air 02/17/22 13:30 36.3 C L 72 16 121/76 96 Room Air 02/17/22 13:03 36.4 C L 83 16 115/73 99 Room Air 02/17/22 12:40 36.9 C 84 18 125/79 100 Room Air 02/17/22 12:19 36.7 C 84 18 126/72 100 Room Air 02/17/22 12:09 36.9 C 88 17 137/75 100 Non-rebreather 4 02/17/22 11:57 36.8 C 87 17 132/81 100 Non-rebreather 4 02/17/22 11:47 36.8 C 88 17 117/69 100 Non-rebreather 4 02/17/22 09:04 37.7 C H 02/17/22 08:27 38 C H 02/17/22 07:50 39.3 C H 107 H 16 115/68 98 Room Air Laboratory Results Abnormal lab results 02/16/22 02/16/22 02/16/22 Range/Units 17:00 17:00 17:00 WBC 11.18 H (4.8-10.8) K/ul Hgb (12.0-16.0) g/dl Neut # (Auto) 9.22 H (1.4-6.5) K/uL Lymph # (Auto) 0.66 L (1.2-3.4) K/uL [place] # (Auto) 1.16 H (0.24-0.82) K/uL Immature Gran # (Auto) 0.05 H (0.00-0.02) K/uL ESR 100 H (0-30) mm/hr Sodium 131 L (136-145) mmol/L Creatinine (0.6-1.2) mg/dl Glucose 120 H (70-99(Fasting)) mg/dl Magnesium (1.7-2.4) mg/dl C-Reactive Protein (0-0.5) mg/dl Globulin 4.1 H (2.5-4.0) gm/dl Procalcitonin (0-0.5) ng/ml 02/16/22 02/17/22 02/17/22 Range/Units 17:00 05:25 05:25 WBC (4.8-10.8) K/ul Hgb 11.2 L (12.0-16.0) g/dl Neut # (Auto) 8.69 H (1.4-6.5) K/uL Lymph # (Auto) 0.66 L (1.2-3.4) K/uL [place] # (Auto) 1.03 H (0.24-0.82) K/uL Immature Gran # (Auto) 0.03 H (0.00-0.02) K/uL ESR (0-30) mm/hr Sodium 134 L (136-145) mmol/L Creatinine 0.54 L (0.6-1.2) mg/dl Glucose (70-99(Fasting)) mg/dl Magnesium 1.6 L (1.7-2.4) mg/dl C-Reactive Protein 39.16 H (0-0.5) mg/dl Globulin (2.5-4.0) gm/dl Procalcitonin (0-0.5) ng/ml 02/17/22 Range/Units 08:53 WBC (4.8-10.8) K/ul Hgb (12.0-16.0) g/dl Neut # (Auto) (1.4-6.5) K/uL Lymph # (Auto) (1.2-3.4) K/uL [place] # (Auto) (0.24-0.82) K/uL Immature Gran # (Auto) (0.00-0.02) K/uL ESR (0-30) mm/hr Sodium (136-145) mmol/L Creatinine (0.6-1.2) mg/dl Glucose (70-99(Fasting)) mg/dl Magnesium (1.7-2.4) mg/dl C-Reactive Protein (0-0.5) mg/dl Globulin (2.5-4.0) gm/dl Procalcitonin 0.58 H (0-0.5) ng/ml (1) Septic arthritis of knee, right Septic arthritis organism: staphylococcal Qualified Code(s): M00.061 - Staphylococcal arthritis, right knee
[2022-02-17] MEDS: ASPIRIN 81 MG ECTAB PO SCH (21:35)
[2022-02-17] MEDS: SENNA 8.6 MG TAB PO SCH (21:36)
[2022-02-17] MEDS: DOCUSATE SODIUM 100 MG CAP PO SCH (21:36)
[2022-02-17] MEDS: oxyCODONE HCL IR 5 MG TAB (IMMEDIATE RELEASE) PO PRN (21:39)
[2022-02-17] MEDS ORDERED: VANCOMYCIN HCL 750 MG in SODIUM CHLORIDE 0.9% 250 ML IV SCH (21:45)
[2022-02-18] MEDS: KETOROLAC 30 MG/ML VIAL IV SCH ×5 (00:59→22:56)
[2022-02-18] MEDS: SODIUM CHLORIDE 0.9% 1000ML 1,000 ML IV SCH (00:59)
[2022-02-18] MEDS: VANCOMYCIN HCL 1,000 MG in SODIUM CHLORIDE 0.9% 250 ML IV SCH (03:30)
[2022-02-18] MEDS: ERTAPENEM SODIUM 1,000 MG in SYRINGE 0 ML IV SCH (06:11)
[2022-02-18] MEDS: ACETAMINOPHEN 500 MG TAB PO SCH ×3 (06:12→22:56)
[2022-02-18] MEDS: oxyCODONE HCL IR 5 MG TAB (IMMEDIATE RELEASE) PO PRN ×2 (06:15→14:50)
[2022-02-18 07:08] LABS: Hematocrit (blood only) 30.1 % (34.1-44.9); Hemoglobin 10.1 g/dl (12.0-16.0); Mean Corpuscular Hemoglobin 27.7 pg (25.0-34.0); Mean Corpuscular Hgb Conc 33.6 g/dL (32.0-36.0); Mean Corpuscular Volume 82.7 fL (80.0-100.0); Mean Platelet Volume 10.6 fL (9.4-12.3); Platelet Count 213 K/uL (130-400); RDW Coefficient of Variation 13.5 % (11.5-14.5); RDW Standard Deviation 41.3 fL (36.4-46.3); Red Blood Count 3.64 M/uL (3.93-5.22); White Blood Count 10.12 K/ul (4.8-10.8)
[2022-02-18 07:40] LABS: BUN Creatinine Ratio 26.9 (10-20); Calcium 8.2 mg/dl (8.5-10.1); Est GFR (African American) 126.4 ml/min; Est GFR (Non-African American) 109.1 ml/min; Magnesium 2.1 mg/dl (1.7-2.4); Potassium 3.8 mmol/L (3.5-5.1)
[2022-02-18] MEDS: ASPIRIN 81 MG ECTAB PO SCH ×2 (08:13→20:33)
[2022-02-18] MEDS: MULTIVITAMIN TAB PO SCH (08:13)
[2022-02-18] MEDS: DOCUSATE SODIUM 100 MG CAP PO SCH ×2 (08:13→20:32)
--- NOTE | 2022-02-18 11:34 | Progress Notes ---
DATE OF NOTE: 02/18/2022 SUBJECTIVE: A 52-year-old female postoperative day 1 from arthroscopic irrigation and debridement an d synovectomy of an infected [place] knee with underlying arthritis. She is doing much better. Pain is much better controlled. Feeling much better. Hoping to get out of the hospital as soon as possibl e. OBJECTIVE: VITAL SIGNS: Temperature is 36.9. Vital signs are stable. GENERAL: Shows a pleasant middle-aged female. She is sitting up in bed. She is awake, alert and or iented. Looks comfortable. EXTREMITIES: Examination of the right leg reveals the dressing to be clean, dry and intact. Her misael in is in place. She is neurologically intact. LABORATORY DATA: Hemoglobin 10.1. Hematocrit 30.1. Electrolytes are stable. ASSESSMENT: A 52-year-old female postoperative day 1 from arthroscopic irrigation and debridement of an infected knee. She is doing much better. She is likely going to require a course of probably ab out 4 weeks of IV antibiotics. PLAN: 1. DVT prophylaxis includes thigh-high TEDs, SCDs, and aspirin twice a day. 2. PT/OT. She can weight bear as tolerated. 3. Pain control, doing okay with current pain regimen. 4. Disposition: She should be able to be discharged to home once everything is sorted out. We need to likely get her PICC line and probably 4 weeks of IV antibiotics. ID consult is in place and wait ing for ID recommendations. Job ID: [id number]
--- NOTE | 2022-02-18 11:48 | Hospitalist Progress Note ---
Date of Service February 18, 2022 Assessment & Plan (1) Septic arthritis of knee, right: Plan: Patient has right knee septic arthritis Culture of aspirate on 02/14 growing MSSA Had fever this AM at 39.3 Did meet SIRS criteria for sepsis with fever and tachycardia on 02/17/22 No leukocytosis. Lactate is normal Procal was 0.58 S/P incision and debridement by surgeon POD 1 Culture from OR growing staphylococcus Deescalate vanc and ertapenem to ancef Will get ID consult tomorrow for final Abx recs/duration ASA 81mg BID ordered by surgery PT/OT eval noted Admission and Anticipated Discharge Date Admission Date: February 16, 2022 Subjective Patient seen and examined Patient reports right knee pain is controlled. Denied any chest pain, cough, shortness of breath Fever is resolved Denied nausea, vomiting, abd pain. Yet to have BM. Passing flatus Denied dysuria, freq, urgency Physical Exam Constitutional: + well hydrated; no acute distress Eyes: PERRL, conjunctivae normal, anicteric sclerae ENMT: external ear and nose normal, oropharynx normal Respiratory: normal respiratory effort, lungs clear to auscultation Cardiovascular: Rate/Rhythm: regular rate and regular rhythm S1 S2 Gastrointestinal (Abdomen): normal bowel sounds, soft, nontender, no hepa tosplenomegaly Musculoskeletal: Right Knee and leg bandaged Neurologic: PERRL, EOMI, accommodation nl, no face palsy, no dysarthria Psychiatric: A+Ox3, euthymic affect Results & Data Results & Data ([facility]) Vital Signs (Past 12 Hours) Vital Signs Temp Pulse Resp BP Pulse Ox O2 Del Method 02/18/22 11:05 36.9 C 64 16 99/60 L 99 Room Air 02/18/22 06:58 36.5 C 60 16 95/59 L 98 Room Air 02/18/22 03:00 36.4 C L 60 16 95/60 L 100 Room Air Laboratory Results Abnormal lab results 02/18/22 02/18/22 Range/Units 06:55 06:55 RBC 3.64 L (3.93-5.22) M/uL Hgb 10.1 L (12.0-16.0) g/dl Hct 30.1 L (34.1-44.9) % Creatinine 0.52 L (0.6-1.2) mg/dl BUN/Creatinine Ratio 26.9 H (10-20) Glucose 133 H (70-99(Fasting)) mg/dl Calcium 8.2 L (8.5-10.1) mg/dl (1) Septic arthritis of knee, right Septic arthritis organism: staphylococcal Qualified Code(s): M00.061 - Staphylococcal arthritis, right knee
[2022-02-18] MEDS: ceFAZolin 2000MG 2,000 MG/15 ML SYR IV SCH ×2 (16:54→22:51)
[2022-02-18] MEDS: SENNA 8.6 MG TAB PO SCH (20:33)
[2022-02-19] MEDS ORDERED: VANCOMYCIN LEVEL ONE (04:44)
[2022-02-19] MEDS: ACETAMINOPHEN 500 MG TAB PO SCH ×3 (06:41→22:17)
[2022-02-19] MEDS: ceFAZolin 2000MG 2,000 MG/15 ML SYR IV SCH ×3 (06:41→22:17)
[2022-02-19] MEDS: KETOROLAC 30 MG/ML VIAL IV SCH (06:41)
[2022-02-19 07:33] LABS: Hematocrit (blood only) 28.3 % (34.1-44.9); Hemoglobin 9.3 g/dl (12.0-16.0); Mean Corpuscular Hemoglobin 27.3 pg (25.0-34.0); Mean Corpuscular Hgb Conc 32.9 g/dL (32.0-36.0); Mean Platelet Volume 10.5 fL (9.4-12.3); Platelet Count 233 K/uL (130-400); RDW Coefficient of Variation 13.2 % (11.5-14.5); RDW Standard Deviation 40.4 fL (36.4-46.3); Red Blood Count 3.41 M/uL (3.93-5.22); White Blood Count 7.03 K/ul (4.8-10.8)
[2022-02-19] MEDS: oxyCODONE HCL IR 5 MG TAB (IMMEDIATE RELEASE) PO PRN ×3 (07:35→22:17)
[2022-02-19 07:56] LABS: BUN Creatinine Ratio 37.5 (10-20); Calcium 8.2 mg/dl (8.5-10.1); Creatinine Clr Calc Pharmacy 101.2 ml/min; Est GFR (African American) 123.4 ml/min; Est GFR (Non-African American) 106.5 ml/min; Potassium 3.5 mmol/L (3.5-5.1)
--- NOTE | 2022-02-19 08:41 | Progress Notes ---
DATE OF NOTE: 02/19/2022 SUBJECTIVE: A 52-year-old female postoperative day 2 from arthroscopic irrigation and debridement of a septic knee with underlying arthritis. She is doing much better, much improved pain georges. Hoping to go home. OBJECTIVE: VITAL SIGNS: Temperature 37.3. Vital signs are stable. GENERAL: Shows a pleasant middle-aged female. She is sitting up in bed, looks much more comfortable . EXTREMITIES: Examination of the right leg with the dressing removed reveals minimal knee effusion. Still pretty tender to palpate. She is neurologically intact. LABORATORY DATA: Culture results are showing Staphylococcus aureus, it is methicillin sensitive. ASSESSMENT: A 52-year-old female postoperative day 2 from arthroscopic irrigation and debridement of a septic knee with underlying arthritis. She is doing much better. She has been on IV antibiotics. The bacteria is methicillin sensitive Staphylococcus aureus. PLAN: We will continue DVT prophylaxis includes thigh-high TEDs, SCDs, and aspirin. I think she can be converted to a different antibiotics either Ancef 3 times a day for the next 4 weeks IV or maybe ceftriaxone depending on Infectious Disease consult. Ceftriaxone obviously would likely be easier as it is probably once a day dosing. In either case, we will wait for ID recommendation and discharge after that. Job ID: [id number]
[2022-02-19] MEDS: ASPIRIN 81 MG ECTAB PO SCH ×2 (08:49→19:34)
[2022-02-19] MEDS: DOCUSATE SODIUM 100 MG CAP PO SCH ×2 (08:49→19:34)
[2022-02-19] MEDS: MULTIVITAMIN TAB PO SCH (08:49)
--- NOTE | 2022-02-19 12:56 | Hospitalist Progress Note ---
Date of Service February 19, 2022 Assessment & Plan (1) Septic arthritis of knee, right: Plan: Patient has right knee septic arthritis Culture of aspirate on 02/14 growing MSSA Had fever this AM at 39.3 Did meet SIRS criteria for sepsis with fever and tachycardia on 02/17/22 No leukocytosis. Lactate is normal Procal was 0.58 S/P incision and debridement by surgeon POD 2 Culture from OR growing MSSA Currently on ancef 2g q8h Awaiting ID consult this afternoon for final Abx recs/duration. A once a day dosing antibiotic regimen will be best for patient to manage at home if possible ASA 81mg BID ordered by surgery PT/OT eval noted Admission and Anticipated Discharge Date Admission Date: February 16, 2022 Subjective Patient seen and examined Patient reports right knee pain is improved Denied any chest pain, cough, shortness of breath No fever in the past 48h Denied nausea, vomiting, abd pain. Yet to have BM. Passing flatus Denied dysuria, freq, urgency Reports anxiety being in the hospital and will like to be discharged as soon as possible. Physical Exam Constitutional: + well hydrated; no acute distress Eyes: PERRL, conjunctivae normal, anicteric sclerae ENMT: external ear and nose normal, oropharynx normal Respiratory: normal respiratory effort, lungs clear to auscultation Cardiovascular: Rate/Rhythm: regular rate and regular rhythm S1 S2 Gastrointestinal (Abdomen): normal bowel sounds, soft, nontender, no hepatosplenomegaly Musculoskeletal: Dressing over right knee Neurologic: PERRL, EOMI, accommodation nl, no face palsy, no dysarthria Psychiatric: A+Ox3, euthymic affect Results & Data Results & Data ([facility]) Vital Signs (Past 12 Hours) Vital Signs Temp Pulse Resp BP Pulse Ox O2 Del Method 02/19/22 07:58 36.6 C 69 16 97/59 L 99 Room Air Laboratory Results Abnormal lab results 02/19/22 02/19/22 02/19/22 Range/Units 06:38 06:38 06:38 RBC 3.41 L (3.93-5.22) M/uL Hgb 9.3 L (12.0-16.0) g/dl Hct 28.3 L (34.1-44.9) % Creatinine 0.56 L (0.6-1.2) mg/dl BUN/Creatinine Ratio 37.5 H (10-20) Glucose 108 H (70-99(Fasting)) mg/dl Calcium 8.2 L (8.5-10.1) mg/dl Random Vancomycin < 3.0 L (10-20) mcg/ml (1) Septic arthritis of knee, right Septic arthritis organism: staphylococcal Qualified Code(s): M00.061 - Staphylococcal arthritis, right knee
[2022-02-19] MEDS: SENNA 8.6 MG TAB PO SCH (19:34)
[2022-02-20] MEDS: oxyCODONE HCL IR 5 MG TAB (IMMEDIATE RELEASE) PO PRN (06:06)
[2022-02-20] MEDS: ACETAMINOPHEN 500 MG TAB PO SCH ×2 (06:07→14:20)
[2022-02-20] MEDS: ceFAZolin 2000MG 2,000 MG/15 ML SYR IV SCH ×2 (06:25→14:20)
[2022-02-20 07:17] LABS: Hematocrit (blood only) 28.3 % (34.1-44.9); Hemoglobin 9.4 g/dl (12.0-16.0); Mean Corpuscular Hemoglobin 27.6 pg (25.0-34.0); Mean Corpuscular Hgb Conc 33.2 g/dL (32.0-36.0); Mean Platelet Volume 10.2 fL (9.4-12.3); Platelet Count 240 K/uL (130-400); RDW Coefficient of Variation 14.2 % (11.5-14.5); RDW Standard Deviation 43.2 fL (36.4-46.3); Red Blood Count 3.41 M/uL (3.93-5.22); White Blood Count 5.41 K/ul (4.8-10.8)
[2022-02-20 07:49] LABS: Calcium 7.9 mg/dl (8.5-10.1); Creatinine Clr Calc Pharmacy 118.1 ml/min; Est GFR (African American) 129.8 ml/min; Potassium 3.2 mmol/L (3.5-5.1)
[2022-02-20] MEDS: DOCUSATE SODIUM 100 MG CAP PO SCH (08:43)
[2022-02-20] MEDS: MULTIVITAMIN TAB PO SCH (08:43)
[2022-02-20] MEDS: ASPIRIN 81 MG ECTAB PO SCH (08:43)
[2022-02-20] MEDS: HYDROmorphone INJ 0.5 MG/0.5 ML SYR IV PRN ×2 (09:32→13:59)
[2022-02-20] MEDS ORDERED: POTASSIUM CHLORIDE CRTAB 20 MEQ TABCR PO STA (11:05)
--- NOTE | 2022-02-20 15:53 | Discharge Summary ---
Discharge Summary Date of Service February 20, 2022 Notes For Next Care Provider Please check weekly CBC, BMP, CRP while on IV antibiotics Medication Changes From Visit IV Ancef 2g q8h for 4 weeks (till 03/16/22) Discharged on po oxycodone 5mg prn for pain Patient reports she has not been on klonopin for years. (This was confirmed on PDMP and discontinued) Patient to used scheduled tylenol as prescribed for first few days and then c hange to as needed Admission HPI Per Admitting Provider This is a 52-year-old female with past medical history significant for osteoarthritis, no other significant medical problems, not taking any medication currently, presents with right knee pain. The patient says she has arthritis in the right knee and her knee has been drained a few times in the past and last time it was drained was a few days back in the ER. She was having swelling and pain since last Saturday and a couple of days ago, she was drained in the ER and cultures growing Staph species, so was advised to come to the hospital. She is having a lot of pain in the knee and also swelling down the knee, right leg. Not able to put any weight on that leg. Denies any fevers. No other problems. Currently resting comfortably and hemodynamically stable. Denies any headache, no dizziness, no blurred visions, no earache, no runny nose, no sore throat. No cough. Appetite is okay. No difficulty swallowing. No chest pain or shortness of breath, no nausea, no abdominal pain. Normal bowel and bladder movements. No hematuria or blood in the stools or black stools. Admission Exam Per Admitting Provider GENERAL: The patient is of moderate build, not in acute distress. VITAL SIGNS: Temperature 37.2, pulse 90, respiratory rate 20, blood pressure 127/76, and oxygen 98% on room air. HEENT: Pupils equal, round and reactive to light. Oral mucosa moist. NECK: No JVD, no neck masses. CARDIOVASCULAR: S1 and S2 heard. Regular rate and rhythm. No murmur, no gallop. RESPIRATORY SYSTEM: Normal AP diameter. No accessory muscle use. No wheezing, no crackles. ABDOMEN: Soft, bowel sounds present, nontender, no distention. CENTRAL NERVOUS SYSTEM: Cranial nerves II through XII grossly intact, nonfocal. EXTREMITIES: Right knee is swollen and tender and swelling below the right knee, no erythema is seen, painful to palpation, painful on movements. Principal Dx & Hospital Course #1 = Principal Diagnosis (1) Septic arthritis of knee, right: Patient has right knee septic arthritis Culture of aspirate on 02/14 growing MSSA Did meet SIRS criteria for sepsis with fever and tachycardia on 02/17/22 No leukocytosis. Lactate is normal Procal was 0.58 S/P incision and debridement by surgeon POD 3 Culture from OR growing MSSA Currently on ancef 2g q8h ID recommendations noted. ID recommend continuing IV Ancef 2g q8h for 4 weeks Patient to check weekly BMP, CBC while on antibiotics and follow up results with PCP CM made arrangements for home antibiotics setup PICC can be removed after completion of Antibiotics ASA 81mg BID for DVT prophylaxis per surgeon Discharge Exam Constitutional + well hydrated; no acute distress Eyes PERRL, conjunctivae normal, anicteric sclerae ENMT external ear and nose normal, oropharynx normal Respiratory normal respiratory effort, lungs clear to auscultation Cardiovascular Rate/Rhythm: regular rate and regular rhythm S1 S2 Gastrointestinal (Abdomen) normal bowel sounds, soft, nontender, no hepatosplenomegaly Musculoskeletal Right knee bandaged Neurologic PERRL, EOMI, accommodation nl, no face palsy, no dysarthria Psychiatric A+Ox3, euthymic affect Updated Medication List Medication Instructions Recorded Confirmed Type acetaminophen 500 mg tablet 1,000 mg PO Q8 7 days #42 tabs 02/20/22 Rx (Tylenol Extra Strength) aspirin 81 mg tablet,delayed 81 mg PO BID 2 weeks #28 tabs 02/20/22 Rx release oxycodone 5 mg tablet 5 mg PO Q6H PRN pain #20 tabs 02/20/22 Rx sennosides 8.6 mg tablet (Senokot) 17.2 mg PO HS #7 tabs 02/20/22 Rx Hospital Stay Data Consultations 02/16/22 20:04 ED Decision to Admit Stat 02/17/22 12:32 Consult Infectious Diseases Routine Procedures Performed Operation Date: 02/17/22 09:00 Actual Procedures p Right Knee Arthroscopy Incision and Debridement (Right) - Imtiaz Ramos MD Diagnostic Imagining Performed 02/16/22 21:59 US venous doppler LE RT Urgent Pending Results Patient Have Any Pending Studies at Discharge: No Discharge Instructions Given to Patient (Per Discharging Provider) Mrs Perales. You came to the hospital for worsening right knee pain and swelling. You were treated for septic arthritis and required incision and debridement. You are being discharged on IV cefazolin 2g every 8 hours for the next 4 weeks (until 03/16/22) Please ensure you do the weekly labs (CBC, CRP and BMP) while on antibiotics and follow up the results with Primary Doctor. Your PICC line should be removed by home health after completion of your antibiotics. It is important that you follow up with Primary Doctor. It was a pleasure taking care of you Total Time Total Time Spent Total Time Spent (In Minutes): 50 Total Time Includes: Examination of the Patient, Discharge Planning and Medication Reconciliation
--- NOTE | 2022-02-20 17:58 | Progress Notes ---
SUBJECTIVE: A 52-year-old female postoperative day #3 from arthroscopic irrigation and debridement o f a septic right knee. She continues to doing markedly better. Some pain, but very manageable, much improved. She is just waiting to go home when I visited her. OBJECTIVE: VITAL SIGNS: Temperature 37.3. Vital signs are stable. PHYSICAL EXAMINATION: GENERAL: Shows a pleasant middle-aged female. She is sitting up in bed and looks quite comfortable. Looking forward to going home. EXTREMITIES: Examination of the right knee reveals the dressing to be clean, dry and intact. She ca n do a straight leg raise. She does have a slight flexion contracture. She only bends to about 70 d egrees. Small knee effusion. She is neurologically intact. LABORATORY DATA: Cultures are growing out methicillin sensitive Staph aureus on both cultures. Bloo d cultures are no growth. ASSESSMENT: A 52-year-old female postoperative day #3 from arthroscopic irrigation and debridement o f a septic knee with underlying DJD. She is doing much better. PICC line is in place. She is just waiting to be discharged. PLAN: She can be discharged on IV Ancef 3 times a day for 4 weeks. We will likely treat with some p .o. antibiotics and base duration on her sed rate and CRP. We will be using DVT prophylaxis included TEDs and aspirin twice a day. I will see her back in 2 weeks. Job ID: [id number]
== END 2022-02-20 16:30 | disposition home health service (06) | DRG 500 ==
LOC: ED 14:51 → 3E 20:32 → SUATTDRO 20:32 → 3E 21:12
DX: B95.61 Methicillin susceptible Staphylococcus aureus infection as the cause of diseases classified elsewhere; F17.210 Nicotine dependence, cigarettes, uncomplicated; Z88.0 Allergy status to penicillin; M00.861 Arthritis due to other bacteria, right knee; Z88.1 Allergy status to other antibiotic agents; A41.9 Sepsis, unspecified organism; M17.11 Unilateral primary osteoarthritis, right knee